=== PATIENT | male | born 2000 | race Caucasian/White ===

== ENCOUNTER 2023-11-05 18:58 | Emergency (ER) | payer OTHER ==
[2023-11-05] MEDS: Diphtheria,Pertussis(Acell),Tetanus Vaccine 0.5 ML Syringe IM ONE (21:43)
[2023-11-05] MEDS: Tetracaine HCl/PF 0.5% 4 ML Bottle EYELF ONE (21:43)
[2023-11-05] MEDS: Cephalexin 500 MG Cap PO ONE (23:00)
== END 2023-11-05 23:04 | disposition home or self-care (01) ==
LOC: MW.ED 18:58
DX: S05.02XA Injury of conjunctiva and corneal abrasion without foreign body, left eye, initial encounter (principal); Z23 Encounter for immunization; Z75.8 Other problems related to medical facilities and other health care; X58.XXXA Exposure to other specified factors, initial encounter
CPT/HCPCS: 70030; 90471; 90715; 99283; A9270; J3490